=== PATIENT | female | born 1960 | race Caucasian/White ===

== ENCOUNTER 2022-09-18 10:50 | Outpatient (REF) | payer OTHER, SELFPAY ==
[2022-09-18 12:44] LABS: Anion Gap 11 (12-20); Blood Urea Nitrogen 14 mg/dL (9-16); Calcium 9.8 mg/dL (8.4-10.2); Carbon Dioxide 28 mmol/L (22-29); Chloride 105 mmol/L (96-108); Estimated Glomerular Filt Rate > 60; Glucose Random 88 mg/dL (60-115); Potassium 4.4 mmol/L (3.3-5.1); Sodium 140 mmol/L (135-145); T4 Thyroxine 5.6 ug/dL (4.5-12.0); Thyroid Stimulating Hormone 0.68 uIU/mL (0.32-4.0)
[2022-09-18 12:55] LABS: Folate 9.9 ng/mL (> or = 4.0); Vitamin B12 1012 pg/mL (200-900)
[2022-09-20 14:37] LABS: IgA 161 mg/dL (70-320); IgG 794 mg/dL (600-1540); IgM 74 mg/dL (50-300)
[2022-09-20 15:09] LABS: Anti Nuclear Antibody Screen NEGATIVE (NEGATIVE)
== END 2022-09-18 10:51 | disposition home or self-care (01) ==
LOC: HO.LAB 10:50
PROVIDERS: PCP Internal Medicine; Visit Provider Psychiatry & Neurology Neurology
DX: G62.9 Polyneuropathy, unspecified (principal)
CPT/HCPCS: 36415; 80048; 82607; 82746; 82784; 84436; 84443; 86038; 86039; 86334

== ENCOUNTER 2024-01-02 08:53 | Outpatient (AMB) | payer OTHER, SELFPAY ==
--- NOTE | 2024-01-02 09:03 | HO.SPINEOV ---
Intake Intake Visit Reasons: spinal stenosis Intake Note: Ms. Martinez is here today c/o numbness down both legs to knees. Training Officer Required: No Allergies No Known Allergies Allergy (Verified 01/02/24 09:03) Assessment & Plan Assessment & Plan (1) Polyneuropathy: Code(s): G62.9 - Polyneuropathy, unspecified Plan Dear colleague Thank you for referring Vinita Martinez to the office today with a chief complaint of bilateral leg cramps and numbness. HPI: This 63-year-old female developed severe nightly cramps 2 years ago. The cramps last for about 6 minutes and bring her to tears. The last 2 months she is able to control the cramps. She also has constant numbness in the lower part of the legs. She denies pain with walking or standing. An EMG was positive for signs of polyneuropathy. Extensive lab evaluation was negative. She is referred for lumbar spinal stenosis PMH: Asthma Medications: Gabapentin 200 mg, Flovent Allergies: NKDA Social history: Physical Exam: Pleasant female not in obvious agony. No obvious neurological deficits. Radiological Studies: MRI done at [facility] shows mild central spinal stenosis L3-4 and L4-5 Impression/Plan: This patient is suffering from unexplained night cramps and constant sensory deficits of the lower part of the legs which is most compatible with a polyneuropathy. Lumbar spinal stenosis is a clinical diagnosis and she has no signs of neurogenic claudication. Therefore, I do not think her symptoms are related to the minor changes on the MRI. I discharged her from further follow-up. Thank you for allowing me to participate in your patients care. total time spent was 40 minutes in counseling ,coordination of plan, personal review of imaging, surgical decision making and subsequent plan Garfield Velasquez MD, PhD Sp[facility] Trained Neurosurgeon Director, [facility] Coding Level of Care Code New Pt Level 3 (06552) Diagnoses Polyneuropathy G62.9
== END 2024-01-02 09:28 | disposition home or self-care (01) ==
PROVIDERS: PCP Internal Medicine; Referring Provider Internal Medicine; Visit Provider Neurological Surgery
DX: G62.9 Polyneuropathy, unspecified (principal)
CPT/HCPCS: 99203

== ENCOUNTER → 2024-01-02 08:53 | Outpatient (BNVA) | payer OTHER, SELFPAY | PROVIDERS: PCP Internal Medicine; Visit Provider Neurological Surgery | DX: G62.9 Polyneuropathy, unspecified (principal) | CPT/HCPCS: 99202 ==